=== PATIENT | male | born 1960 | race Caucasian/White ===

== ENCOUNTER 2020-12-21 20:13 | Emergency (ER) | payer OTHER ==
[2020-12-21] MEDS ORDERED: SODIUM CHLORIDE 0.9% 100 ML IV ONE (20:29)
[2020-12-21] MEDS ORDERED: CEFAZOLIN SODIUM 1 GM VIAL ONE (20:30)
[2020-12-21] MEDS ORDERED: TETANUS/DIPHTHERIA TOXOID [ADULT] 0.5 ML VIAL IM ONE (20:33)
[2020-12-21] MEDS ORDERED: LIDOCAINE HCL 1% 20 ML VIAL ONE (20:35)
[2020-12-21] MEDS ORDERED: ONDANSETRON HCL 4 MG/2 ML VIAL ONE (21:03)
[2020-12-21] MEDS ORDERED: KETOROLAC TROMETHAMINE 30MG/ML ONE (21:03)
[2020-12-21] MEDS ORDERED: HYDROCODONE/ACETAMINOPHEN 10/325 MG TAB ONE (21:04)
== END 2020-12-21 21:39 | disposition home or self-care (01) ==
LOC: EDH 20:13
DX: S61.240A Puncture wound with foreign body of right index finger without damage to nail, initial encounter (principal); S61.242A Puncture wound with foreign body of right middle finger without damage to nail, initial encounter; X58.XXXA Exposure to other specified factors, initial encounter; Y93.89 Activity, other specified; Y92.018 Other place in single-family (private) house as the place of occurrence of the external cause; Y99.8 Other external cause status
CPT/HCPCS: 10120; 73140 ×2; 90471; 90714; 96365; 96375; 99284; J0690; J1885; J2405

== ENCOUNTER 2023-04-26 16:21 | Observation (INO) | payer OTHER ==
[~2023-04-26] VITALS: Ht 182.9 cm; Wt 105.0 kg
[2023-04-26] MEDS ORDERED: 0.9%NACL 1000ML 1,000 ML IV ONE (17:00)
[2023-04-26] MEDS ORDERED: ATROPINE 0.4MG VIAL IJ ONE (17:00)
[2023-04-26] MEDS ORDERED: MECLIZINE HCL 25 MG TABLET PO ONE (17:00)
[2023-04-26] MEDS ORDERED: ATROPINE 1MG SYG IVP ONE (17:02)
[2023-04-26 17:10] LABS: BASOPHILS # (AUTO) 0.04 K/uL (0.00-0.20); BASOPHILS % (AUTO) 0.5 % (0.0-5.0); EOSINOPHILS # (AUTO) 0.03 K/uL (0.00-0.70); EOSINOPHILS % (AUTO) 0.4 % (0.0-8.0); HEMATOCRIT 43.4 % (42-54); IMMATURE GRANULOCYTE ABSOLUTE 0.03 K/uL (0-1); LYMPHOCYTES # (AUTO) 1.2 K/uL (1.0-4.8); LYMPHOCYTES % (AUTO) 15.2 % (21.0-51.0); MEAN CORPUSCULAR HEMOGLOBIN 29.9 pg (27.0-33.0); MEAN CORPUSCULAR HGB CONC 33.2 g/dL (32.0-36.0); MEAN CORPUSCULAR VOLUME 90.2 fL (79-99); MONOCYTES # (AUTO) 0.3 K/uL (0.1-1.0); MONOCYTES % (AUTO) 3.7 % (3.0-13.0); NEUTROPHILS # (AUTO) 6.2 K/uL (1.8-7.7); NEUTROPHILS % (AUTO) 79.8 % (40.0-77.0); PLATELET COUNT (AUTO) 231 K/uL (130-400); RED BLOOD CELL COUNT(AUTO) 4.81 MIL/uL (4.50-6.20); RED CELL DISTRIBUTION WIDTH 12.4 % (11.0-15.5); WHITE BLOOD COUNT (AUTO) 7.8 K/uL (4.8-10.8)
[2023-04-26 17:21] LABS: POTASSIUM 3.7 mmol/L (3.5-5.1)
[2023-04-26 17:22] LABS: INFLUENZA TYPE A Negative For Type A (NEGATIVE); INFLUENZA TYPE B Negative For Type B (NEGATIVE); SARS-CoV-2, RNA, NAAT NEGATIVE SARS CoV-2 (NEGATIVE)
[2023-04-26 17:36] LABS: ALBUMIN 3.6 g/dL (3.5-5.0); MAGNESIUM 2.1 mg/dL (1.80-2.40); TOTAL PROTEIN, SERUM 7.2 g/dL (6.0-8.3)
[2023-04-26 20:14] LABS: APPEARANCE,URINE CLEAR (CLEAR); BILIRUBIN,URINE NEGATIVE (NEGATIVE); COLOR,URINE COLORLESS (YELLOW); GLUCOSE, URINE (UA) NEGATIVE (NEGATIVE); KETONES,URINE 10 mg/dL (NEGATIVE); LEUKOCYTE ESTERASE ,URINE NEGATIVE Leu/uL (NEGATIVE); NITRATE,URINE NEGATIVE (NEGATIVE); OCCULT BLOOD,URINE NEGATIVE (NEGATIVE); PH,URINE 6.5 (5.0-8.0); PROTEIN,URINE NEGATIVE (NEGATIVE); UROBILINOGEN,URINE 0.2 mg/dL (0.2-1.0)
[2023-04-26 20:15] LABS: ADD UA MICROSCOPIC YES; MUCUS,URINE RARE LPF (None Seen); RBC,URINE 0-1 /HPF (0-1); WBC,URINE 0-1 /HPF (0-1)
[2023-04-26] MEDS ORDERED: ACETAMINOPHEN 650 MG SUPPOSITORY RC PRN (21:00)
[2023-04-26] MEDS ORDERED: HYDRALAZINE 20MG/ML VIAL IV PRN (21:00)
[2023-04-26] MEDS ORDERED: CLONIDINE HCL 0.1 MG TABLET PO PRN (21:00)
[2023-04-26] MEDS ORDERED: ACETAMINOPHEN 325 MG TAB PO PRN (21:00)
[2023-04-26] MEDS ORDERED: LABETALOL 20MG SYG IV PRN (21:00)
[2023-04-26] MEDS: INSULIN HUMULIN R 100 UNIT/ML 3ML SQ SCH (21:00)
[2023-04-26] MEDS ORDERED: ONDANSETRON 4MG INJ IVP PRN (21:00)
[2023-04-26] MEDS: PHARMACY COMMUNICATION MISC SCH (22:00)
[2023-04-27] VITALS (8 sets, daily range): BP systolic 126–144; BP diastolic 71–82; PULSE 48–60; RESP 14–20; O2SAT 97–98
[2023-04-27] MEDS: FAMOTIDINE 20MG TAB PO SCH ×3 (01:14→20:10)
[2023-04-27] MEDS: SIMVASTATIN 20 MG TABLET PO SCH ×2 (01:14→20:10)
[2023-04-27] MEDS: PHARMACY COMMUNICATION MISC SCH ×2 (02:00)
[2023-04-27] MEDS ORDERED: IOHEXOL 350 MG/ML 100ML INFUS..BTL IV ONE ×2 (03:35→11:28)
[2023-04-27 06:16] LABS: HEMATOCRIT 40.2 % (42-54); MEAN CORPUSCULAR HEMOGLOBIN 30.3 pg (27.0-33.0); MEAN CORPUSCULAR HGB CONC 33.8 g/dL (32.0-36.0); MEAN CORPUSCULAR VOLUME 89.5 fL (79-99); RED BLOOD CELL COUNT(AUTO) 4.49 MIL/uL (4.50-6.20); RED CELL DISTRIBUTION WIDTH 12.6 % (11.0-15.5)
[2023-04-27] MEDS: INSULIN HUMULIN R 100 UNIT/ML 3ML SQ SCH (06:21)
[2023-04-27 06:47] LABS: PHOSPHORUS 3.3 mg/dL (2.5-4.9); POTASSIUM 4.4 mmol/L (3.5-5.1); THYROID STIMULATING HORMONE 3.03 uIU/mL (0.36-3.74)
[2023-04-27] MEDS ORDERED: ASPIRIN 81MG CHEW TAB PO SCH ×2 (09:00)
[2023-04-27] MEDS ORDERED: ENOXAPARIN SODIUM 30 MG/0.3 ML SQ SCH (09:00)
[2023-04-28 04:14] VITALS: BP 125/76; PULSE 50; RESP 16
[2023-04-28 05:06] LABS: BASOPHILS % (AUTO) 1.6 % (0.0-5.0); EOSINOPHILS # (AUTO) 0.25 K/uL (0.00-0.70); EOSINOPHILS % (AUTO) 3.9 % (0.0-8.0); HEMATOCRIT 40.6 % (42-54); IMMATURE GRANULOCYTE ABSOLUTE 0.02 K/uL (0-1); LYMPHOCYTES # (AUTO) 2.2 K/uL (1.0-4.8); LYMPHOCYTES % (AUTO) 33.9 % (21.0-51.0); MEAN CORPUSCULAR HEMOGLOBIN 29.7 pg (27.0-33.0); MEAN CORPUSCULAR HGB CONC 32.5 g/dL (32.0-36.0); MEAN CORPUSCULAR VOLUME 91.4 fL (79-99); MONOCYTES # (AUTO) 0.6 K/uL (0.1-1.0); MONOCYTES % (AUTO) 8.7 % (3.0-13.0); NEUTROPHILS # (AUTO) 3.3 K/uL (1.8-7.7); NEUTROPHILS % (AUTO) 51.6 % (40.0-77.0); PLATELET COUNT (AUTO) 217 K/uL (130-400); RED BLOOD CELL COUNT(AUTO) 4.44 MIL/uL (4.50-6.20); RED CELL DISTRIBUTION WIDTH 12.6 % (11.0-15.5); WHITE BLOOD COUNT (AUTO) 6.4 K/uL (4.8-10.8)
[2023-04-28 05:19] LABS: ALBUMIN 2.9 g/dL (3.5-5.0); BILIRUBIN,TOTAL 0.6 mg/dL (0.2-1.0); CREATININE 1.1 mg/dL (0.5-1.5); POTASSIUM 4.2 mmol/L (3.5-5.1); TOTAL PROTEIN, SERUM 6.1 g/dL (6.0-8.3)
[2023-04-28 07:40] VITALS: BP 140/78; PULSE 48; RESP 20
[2023-04-28 08:00] VITALS: O2SAT 97
[2023-04-28] MEDS ORDERED: REGADENOSON 0.4 MG/5 ML PF SYG IVP SCH (09:30)
[2023-04-28 11:25] VITALS: BP 143/90; PULSE 62; RESP 18
[2023-04-28] MEDS ORDERED: GADOTERATE MEGLUMINE 10 MMOL/20 ML VIAL IV ONE (12:15)
[2023-04-28 16:10] VITALS: BP 142/79; PULSE 54; RESP 18
[2023-04-28 16:12] LABS: AMPHET/METH SCREEN,URINE NEGATIVE (NEGATIVE); BARBITURATE SCREEN, URINE NEGATIVE (NEGATIVE); BENZODIAZEPINES SCREEN,URINE NEGATIVE (NEGATIVE); CANNABINOID SCREEN,URINE NEGATIVE (NEGATIVE); COCAINE SCREEN,URINE NEGATIVE (NEGATIVE); OPIATE SCREEN,URINE NEGATIVE (NEGATIVE); PHENCYCLIDINE SCREEN,URINE NEGATIVE (NEGATIVE)
== END 2023-04-28 17:03 | disposition home or self-care (01) ==
LOC: EDH 16:21 → EDHIP 20:59 → 2DH 04-27 04:02
PROVIDERS: ADMIT Internal Medicine Critical Care Medicine; ATTEND Internal Medicine Critical Care Medicine
DX: R00.1 Bradycardia, unspecified (principal); Z20.822 Contact with and (suspected) exposure to COVID-19; R42 Dizziness and giddiness; G43.909 Migraine, unspecified, not intractable, without status migrainosus; R20.2 Paresthesia of skin; R94.31 Abnormal electrocardiogram [ECG] [EKG]; I25.10 Atherosclerotic heart disease of native coronary artery without angina pectoris; Z79.899 Other long term (current) drug therapy; Z98.890 Other specified postprocedural states
CPT/HCPCS: 96360; 96361; 99285; 84443 ×2; 82550; 83735 ×3; 83874; 84484; 80053 ×2; 85025 ×2; 87804 ×2; 82948 ×5; 81001; 36415 ×3; 87635; 71045; 93005; 96372; 84100; 80061; 80048; 83880; 85027; 70460; 71275; 93306; 93880; 70551; 80305; 93017; 78452; 70544; 70549; G0378 ×38; C9803; J0461; J1650; Q9967 ×2; J2785; A9575; A9500 ×2; 96374